=== PATIENT | male | born 1945 | race Two or more races ===

== ENCOUNTER → 2017-04-04 15:09 | Outpatient (CLI) | payer OTHER | END | disposition home or self-care (01) | LOC: LAB 15:09 | DX: J11.1 Influenza due to unidentified influenza virus with other respiratory manifestations (principal) ==

== ENCOUNTER → 2017-04-04 | Outpatient (CLI) | payer OTHER ==
[~2017-04-04] VITALS: Ht 182.9 cm; Wt 122.5 kg
== END | disposition home or self-care (01) ==
LOC: PPHC 12:14
DX: J06.9 Acute upper respiratory infection, unspecified (principal)

== ENCOUNTER 2022-10-11 08:09 | Outpatient (CLI) | payer OTHER ==
[~2022-10-11 08:09] MED LIST: ADDERALL 10 MG10 MG PO; DICLOFENAC POTA50 MG PO; PEPCID AC20 MG; SYNTHROID50 MCG
== END 2022-10-11 08:12 | disposition home or self-care (01) ==
LOC: SONOGRAMA 08:09
PROVIDERS: ATTEND Family Medicine
DX: N18.31 Chronic kidney disease, stage 3a (principal); R31.21 Asymptomatic microscopic hematuria

== ENCOUNTER → 2023-02-16 | Outpatient (CLI) | payer OTHER | END | disposition home or self-care (01) | LOC: MRI 09:23 | PROVIDERS: ATTEND Physical Medicine & Rehabilitation | DX: M54.17 Radiculopathy, lumbosacral region (principal) | CPT/HCPCS: 72148 ==

== ENCOUNTER 2024-04-09 09:54 | Outpatient (CLI) | payer OTHER ==
[~2024-04-09 09:54] MED LIST changes: +DULOXETINE HCL30 MG PO
== END 2024-04-09 10:03 | disposition home or self-care (01) ==
LOC: MRI 09:54
PROVIDERS: ATTEND Physical Medicine & Rehabilitation
DX: M25.561 Pain in right knee (principal)
CPT/HCPCS: 73718

== ENCOUNTER 2024-06-26 07:16 | Outpatient (CLI) | payer OTHER | END 2024-06-26 07:17 | disposition home or self-care (01) | LOC: NUCLEAR 07:16 | PROVIDERS: ATTEND Internal Medicine | DX: I20.9 Angina pectoris, unspecified (principal) | CPT/HCPCS: 78452; 93017; A9500 ==

== ENCOUNTER 2024-07-17 11:02 | Outpatient (CLI) | payer OTHER | END 2024-07-17 11:04 | disposition home or self-care (01) | LOC: MRI 11:02 | DX: M79.604 Pain in right leg (principal) | CPT/HCPCS: 73718 ==

== ENCOUNTER 2024-10-26 11:50 | Outpatient (CLI) | payer OTHER | END 2024-10-26 11:53 | disposition home or self-care (01) | LOC: RAD 11:50 | DX: R05.9 Cough, unspecified (principal) ==